=== PATIENT | female | born 1995 | race Caucasian/White ===

== ENCOUNTER 2017-05-12 19:20 | Inpatient (IN) | payer OTHER, MEDICAID ==
[2017-05-12] MEDS: LACTATED RINGER'S 500 ML IV ×2 (19:31→19:46)
[2017-05-12] MEDS ORDERED: LIDOCAINE 1% (MPF) 30 ML INJ (19:46)
[2017-05-12] MEDS ORDERED: LACTATED RINGER'S 1,000 ML IV (19:46)
[2017-05-12 19:54] LABS: ADD MAN DIFF? NO
[2017-05-12 19:56] LABS: BASOPHIL # 0.1 10^3/ul (0.0-0.1); BASOPHILS % 0.4 % (0.0-2.0); EOSINOPHILS # 0.3 10^3/ul (0.0-0.5); HEMATOCRIT 34.4 % (37.0-47.0); HEMOGLOBIN 11.8 g/dl (12.0-16.0); LYMPHOCYTES % 22.4 % (18.0-55.0); MEAN CORPUSCULAR HEMOGLOBIN 29.6 pg (29.0-33.0); MEAN CORPUSCULAR HGB CONC 34.3 g/dl (32.0-37.0); MEAN CORPUSCULAR VOLUME 86.4 fl (72.0-104.0); MEAN PLATELET VOLUME 10.1 fl (7.4-10.4); MONOCYTE # 1.1 10^3/ul (0.3-0.9); MONOCYTES % 7.9 % (0.0-13.0); NEUTROPHILS % 66.9 % (30.0-74.0); PLATELET COUNT 265 10^3/UL (140-415); RED BLOOD COUNT 3.98 10^6/ul (4.20-5.40); RED CELL DISTRIBUTION WIDTH 13.6 % (11.5-14.5)
[2017-05-12 19:56] LABS: WHITE BLOOD COUNT 13.4 10^3/ul (4.8-10.8)
[2017-05-12] MEDS ORDERED: MISOPROSTOL 200 MCG TAB PR (20:00)
[2017-05-12] MEDS ORDERED: METHYLERGONOVINE 0.2 MG INJ IM (20:00)
[2017-05-12] MEDS ORDERED: OXYTOCIN 30 UNITS/LR 500 ML IV (20:00)
[2017-05-12] MEDS ORDERED: HYDROCODONE/APAP (5/325) TAB PO (20:00)
[2017-05-12] MEDS ORDERED: BUTORPHANOL 2 MG INJ IV ×2 (20:00)
[2017-05-12] MEDS ORDERED: LIDOCAINE 1% (MPF) 30 ML INJ INJ (20:00)
[2017-05-12] MEDS ORDERED: IBUPROFEN 600 MG TAB PO (20:00)
[2017-05-12] MEDS ORDERED: AMPICILLIN 2 GM/NS (PMX) 100 ML IV (20:00)
[2017-05-12] MEDS ORDERED: CARBOPROST 250 MCG INJ IM (20:00)
[2017-05-12 20:28] LABS: INR 0.99; PROTIME 13.2 Sec (11.9-14.9)
[2017-05-12 20:29] LABS: PARTIAL THROMBOPLASTIN TIME 28.5 Sec (25.0-35.0)
[2017-05-12 20:44] LABS: HEPATITIS B SURFACE ANTIGEN NEGATIVE (NEGATIVE)
[2017-05-12] MEDS ORDERED: BETAMET NA PHOS/AC(6 MG/ML) 5ML INJ IM (21:00)
[2017-05-12] MEDS ORDERED: MAGNESIUM SULFATE 20 GM/500 ML 500 ML IV (21:30)
[2017-05-12 21:48] LABS: ADD UMIC YES; UR AMORPHOUS CRYSTAL FEW /HPF (NONE SEEN); UR ASCORBIC ACID NEGATIVE (NEGATIVE); UR BILIRUBIN (Dip) NEGATIVE (NEGATIVE); UR BLOOD (Dip) 2+ mg/dL (NEGATIVE); UR BUDDING YEAST MODERATE /HPF (NONE SEEN); UR CLARITY CLOUDY (CLEAR); UR COLOR YELLOW (YELLOW); UR GLUCOSE (Dip) NEGATIVE (NEGATIVE); UR KETONES (Dip) NEGATIVE (NEGATIVE); UR LEUKOCYTE ESTERASE (Dip) NEGATIVE Leu/ul (NEGATIVE); UR NITRITE (Dip) NEGATIVE (NEGATIVE); UR RBC 1 /HPF (0-5); UR SPECIFIC GRAVITY (Dip) 1.013 (1.003-1.030); UR TOTAL PROTEIN (Dip) NEGATIVE (NEGATIVE); UR UROBILINOGEN (Dip) NEGATIVE (NEGATIVE); UR WBC 3 /HPF (0-5)
[2017-05-12] MEDS: MAGNESIUM SULFATE 4 GM/100 ML 100 ML IVPB (21:52)
[2017-05-12 22:06] LABS: AMPHETAMINE/METHAMPHETAMINE Negative (NEGATIVE); BARBITURATES Negative (NEGATIVE); BENZODIAZEPINES Negative (NEGATIVE); CANNABINOIDS Negative (NEGATIVE); COCAINE Negative (NEGATIVE); OPIATES Negative (NEGATIVE)
[2017-05-12] MEDS: AMPICILLIN 2 GM/NS (PMX) 100 ML IVPB (22:39)
[2017-05-13] MEDS ORDERED: AMPICILLIN 1 GM/NS (PMX) 50 ML IV
[2017-05-13] MEDS: LACTATED RINGER'S 1,000 ML IV ×2 (00:45→01:36)
[2017-05-13] MEDS ORDERED: FENTAnyl 2MCG/ML-ROPIV 0.2% 100 ML (01:31)
[2017-05-13] MEDS ORDERED: EPHEDrine SULFATE 50 MG/5 ML SYG IV (02:30)
[2017-05-13] MEDS ORDERED: NALOXONE (0.4 MG/ML) INJ IV (02:30)
[2017-05-13] MEDS: MISOPROSTOL 25 MCG CAPSULE PR (03:19)
[2017-05-13] MEDS: FENTAnyl 2MCG/ML-ROPIV 0.2% 100 ML BAG EPI (07:19)
[2017-05-13] MEDS: OXYTOCIN 30 UNITS/LR 500 ML IV ×3 (07:20→13:26)
[2017-05-13] MEDS ORDERED: LACTATED RINGER'S 1,000 ML IV* (07:45)
[2017-05-13] MEDS ORDERED: DEXTROSE 5%-LR 1,000 ML IV (07:45)
[2017-05-13] MEDS ORDERED: ACETAMINOPHEN 325 MG TAB PO (08:00)
[2017-05-13] MEDS ORDERED: OXYTOCIN 30 UNITS/LR 500 ML IV ×2 (08:00→13:20)
[2017-05-13] MEDS ORDERED: METHYLERGONOVINE 0.2 MG INJ IM (08:00)
[2017-05-13] MEDS ORDERED: WITCH HAZEL/GLYCERIN PAD PR (08:00)
[2017-05-13] MEDS ORDERED: DIPHENHYDRAMINE 50 MG INJ IV (08:00)
[2017-05-13] MEDS ORDERED: BENZOCAINE 20% 56 ML SPRAY TOP (08:00)
[2017-05-13] MEDS ORDERED: MISOPROSTOL 200 MCG TAB PR (08:00)
[2017-05-13] MEDS ORDERED: ZOLPIDEM 5 MG TAB PO (08:00)
[2017-05-13] MEDS ORDERED: DIBUCAINE 1% 30 GM OINT PR (08:00)
[2017-05-13] MEDS ORDERED: CARBOPROST 250 MCG INJ IM (08:00)
[2017-05-13] MEDS ORDERED: LANOLIN 7 GM TUBE TOP (08:00)
[2017-05-13] MEDS ORDERED: OXYCODONE/ASPIRIN (4.88/325) TAB PO (08:00)
[2017-05-13] MEDS ORDERED: ONDANSETRON 4 MG INJ IV (08:00)
[2017-05-13] MEDS ORDERED: SENNA/DOCUSATE NA (8.6MG/50MG) TAB PO (08:00)
[2017-05-13] MEDS: IBUPROFEN 600 MG TAB PO ×4 (08:29→23:26)
[2017-05-13 22:17] LABS: RAPID PLASMA REAGIN NONREACTIVE (NR)
[2017-05-13] MEDS ORDERED: AMPICILLIN 2 GM/NS (PMX) 100 ML IVPB (22:30)
[2017-05-14] MEDS: IBUPROFEN 600 MG TAB PO ×3 (05:32→17:45)
[2017-05-14 10:48] LABS: ADD MAN DIFF? NO
[2017-05-14 10:50] LABS: BASOPHILS % 0.3 % (0.0-2.0); EOSINOPHILS # 0.2 10^3/ul (0.0-0.5); EOSINOPHILS % 1.8 % (0.0-7.0); HEMATOCRIT 31.4 % (37.0-47.0); HEMOGLOBIN 10.3 g/dl (12.0-16.0); LYMPHOCYTES # 1.4 10^3/ul (0.8-2.9); LYMPHOCYTES % 10.7 % (18.0-55.0); MEAN CORPUSCULAR HEMOGLOBIN 29.3 pg (29.0-33.0); MEAN CORPUSCULAR HGB CONC 32.8 g/dl (32.0-37.0); MEAN CORPUSCULAR VOLUME 89.2 fl (72.0-104.0); MONOCYTE # 0.8 10^3/ul (0.3-0.9); MONOCYTES % 5.7 % (0.0-13.0); NEUTROPHIL # 10.6 10^3/ul (1.6-7.5); NEUTROPHILS % 80.8 % (30.0-74.0); PLATELET COUNT 215 10^3/UL (140-415); RED BLOOD COUNT 3.52 10^6/ul (4.20-5.40)
[2017-05-14 10:50] LABS: WHITE BLOOD COUNT 13.1 10^3/ul (4.8-10.8)
[2017-05-14 12:12] LABS: RUBELLA ANTIBODY - IGG 1.43 index
[2017-05-14] MEDS: DIPHTH/TET/ACEL PERTUSS (ADULT) 0.5 ML VIAL IM* (14:00)
[2017-05-15] MEDS ORDERED: MEASLES,MUMPS,RUBELLA VACCINE INJ SC* (09:00)
[2017-05-15] MEDS ORDERED: DIPHTH/TET/ACEL PERTUSS (ADULT) 0.5 ML VIAL IM* (09:00)
[2017-05-16 12:18] LABS: RUBELLA ANTIBODY - IGM <20.00 AU/mL
== END 2017-05-14 21:26 | disposition home or self-care (01) | DRG 775 ==
LOC: OBT 19:20 → L-D 05-13 07:01 → PP1 05-13 10:26 → L-D 19:44 → OBT 19:20 → L-D 19:21
PROVIDERS: Obstetrics & Gynecology
PROC: 10E0XZZ Delivery of Products of Conception, External Approach (ICD-10-PCS; principal; 2017-05-13)
DX: O60.12X0 Preterm labor second trimester with preterm delivery second trimester, not applicable or unspecified (principal); O36.4XX0 Maternal care for intrauterine death, not applicable or unspecified; Z37.1 Single stillbirth; Z3A.22 22 weeks gestation of pregnancy
CPT/HCPCS: 62319; 76815; 76816; 80307; 81001; 85025; 85610; 85730; 86592; 86762; 86900; 86901; 87070; 87086; 87340; 90715